=== PATIENT | female | born 1995 | race Caucasian/White ===

== ENCOUNTER → 2017-10-09 | Outpatient (CLI) | payer BC ==
--- NOTE | 2017-10-10 09:38 | Physician Query-Final Dx ---
CASEY ZEPEDA 10/10/17 0938: Clinic Account Progress/Dx Physician Query: Cannot code questionable - Please give a more specific diagnosis or sign/symptom thank you Date of Service Oct 09, 2017 at 14:37 MARCELA LARSEN DO 10/25/17 1043: Clinic Account Progress/Dx Physician Query: Please give diagnosis DIAGNOSIS: Diagnosis screening for CASEY ZEPEDA Oct 10, 2017 09:38 MARCELA LARSEN DO Oct 25, 2017 10:43
== END ==
LOC: LAB 14:37
PROVIDERS: ATTEND Surgery
DX: Z32.00 Encounter for pregnancy test, result unknown (principal)
CPT/HCPCS: 84703